=== PATIENT | male | born 1965 | race Two or more races ===

== ENCOUNTER 2019-04-17 15:35 | Emergency (ER) | payer MEDICAID, OTHER ==
[~2019-04-17] VITALS: Ht 172.7 cm; Wt 113.4 kg
[2019-04-17] MEDS ORDERED: ACETAMINOPHEN 500 MG TAB PO ONE ×2 (16:12→16:15)
[2019-04-17 16:49] LABS: Basophils # (auto) 0.1 uL; Basophils % (auto) 0.6 % (0.0-2.0); Eosinophils # (auto) 0 uL; Eosinophils % (auto) 0.2 % (0.0-7.0); Hematocrit 47.8 % (41.0-53.0); Hemoglobin 16.5 g/dL (13.5-17.5); Lymphocytes # (auto) 0.6 uL; Lymphocytes % (auto) 4.5 % (10.0-50.0); Mean Corpuscular Hemoglobin 29.8 pg (28.0-32.0); Mean Corpuscular Hgb Conc. 34.6 g/dL (32.0-36.0); Mean Corpuscular Volume 86.3 fL (80.0-100.0); Monocytes # (auto) 1.1 uL; Monocytes % (auto) 7.9 % (0.0-12.0); Neutrophils # (auto) 12.3 uL; Neutrophils % (auto) 86.8 % (37.0-80.0); Nucleated Red Blood Cells % 0.1 %; Platelet Count (auto) 228 10^3/uL (140-450); Red Blood Cells 5.54 10^6/uL (4.5-5.90); White Blood Cell 14.2 10^3/uL (4.4-10.8)
[2019-04-17 16:56] LABS: Albumin 3.9 g/dL (3.4-5.0); Calcium 9.2 mg/dL (8.5-10.1); Potassium 4.4 mmol/L (3.5-5.1)
[2019-04-17 16:59] LABS: BUN/Creatinine Ratio 19.4; Bilirubin, Total 1.2 mg/dL (0.2-1.0); Total Protein 7.9 g/dL (6.4-8.2)
[2019-04-17] MEDS ORDERED: cefTRIAXone SOD 1,000 MG VL IM ONE (18:15)
[2019-04-17] MEDS ORDERED: cefTRIAXone SOD 1,000 MG VL ONE (18:23)
[2019-04-17 18:35] VITALS: BP 168/100
== END 2019-04-17 18:43 | disposition home or self-care (01) ==
LOC: ER 15:39
DX: J06.9 Acute upper respiratory infection, unspecified (principal); I11.0 Hypertensive heart disease with heart failure; I50.9 Heart failure, unspecified; E11.9 Type 2 diabetes mellitus without complications; Z98.61 Coronary angioplasty status
CPT/HCPCS: 36415; 71046; 80053; 85025; 87804; 99284; J0696